=== PATIENT | female | born 1980 | race Caucasian/White ===

== ENCOUNTER 2019-10-18 21:27 | Emergency (ER) | payer OTHER ==
[~2019-10-18] VITALS: Ht 157.5 cm; Wt 47.2 kg
[2019-10-19] MEDS ORDERED: TUSNEL LIQUID178 ML PO (00:10)
[2019-10-19] MEDS ORDERED: DOLOGEN CAPLET1 EACH PO (00:10)
[2019-10-19] MEDS ORDERED: OSEL75CA PO (00:10)
== END 2019-10-19 00:14 | disposition home or self-care (01) ==
LOC: ER 21:27
DX: J11.1 Influenza due to unidentified influenza virus with other respiratory manifestations (principal)

== ENCOUNTER → 2021-12-11 | Emergency (ER) | payer OTHER ==
[~2021-12-11] VITALS: Ht 157.5 cm; Wt 47.6 kg
[~2021-12-11] MED LIST: DOLOGEN CAPLET1 EACH PO; OSEL75CA PO; TUSNEL LIQUID178 ML PO
== END | disposition left against medical advice (07) ==
LOC: ER 00:35
DX: Z53.21 Procedure and treatment not carried out due to patient leaving prior to being seen by health care provider (principal)